=== PATIENT | female | born 1975 | race African-American/Black ===

== ENCOUNTER 2017-07-31 11:50 | Emergency (ER) | payer OTHER ==
[~2017-07-31] VITALS: Ht 175.3 cm; Wt 88.2 kg
[~2017-07-31 11:50] MED LIST: DIVA500T35 PO
[2017-07-31] MEDS ORDERED: PERCT PO (11:55)
[2017-07-31] MEDS ORDERED: HYDROCODONE/ACETAMINOPHEN 5-325 MG TABLET PO ONE (13:45)
[2017-07-31 14:00] VITALS: BP 148/88
[2017-07-31] MEDS ORDERED: LIDOCAINE HCL 1% 10 ML VIAL INJ ONE (14:00)
[2017-07-31] MEDS ORDERED: PERTUSS(ACELL),DIPH,TET VAC/PF 0.5 ML VIAL IM ONE (15:00)
[2017-07-31] MEDS ORDERED: BACITRACIN 0.9 GM PACKET OINTMENT TP ONE (15:00)
== END 2017-07-31 15:46 | disposition home or self-care (01) ==
LOC: EMS 11:54
DX: S01.112A Laceration without foreign body of left eyelid and periocular area, initial encounter (principal); G89.29 Other chronic pain; F17.210 Nicotine dependence, cigarettes, uncomplicated; W22.8XXA Striking against or struck by other objects, initial encounter; Y93.89 Activity, other specified; Y92.098 Other place in other non-institutional residence as the place of occurrence of the external cause; Y99.8 Other external cause status
CPT/HCPCS: 12011; 70140; 90471; 90715; 99284; J3490

== ENCOUNTER 2021-01-11 08:15 | Emergency (ER) | payer OTHER ==
[~2021-01-11] VITALS: Ht 175.3 cm; Wt 86.4 kg
[~2021-01-11 08:15] MED LIST changes: +DIVA-112 PO; -DIVA500T35 PO; +PERCT PO
[2021-01-11 08:19] VITALS: BP 148/85
== END 2021-01-11 09:39 | disposition home or self-care (01) ==
LOC: EMS 08:15
DX: L03.211 Cellulitis of face (principal)
CPT/HCPCS: 99283; 99284